=== PATIENT | male | born 1955 | race Caucasian/White ===

== ENCOUNTER → 2016-11-09 | Outpatient (CLI) | payer OTHER ==
[~2016-11-09] MED LIST: AUGMENTIN PO; BENADRYL PO; CELEXA PO; COMBIVENT INH14.7 GM INH; COREG12.5 MG PO; CREON DR 24,001 EACH PO; CRESTOR PO; DICLOFENAC PO; EFFEXOR XR PO; ENTRESTO 24 MG1 EACH PO; FAMOTIDINE20 M1 PO; FERROUS GLUCON324 MG PO; FLEXERIL10 MG PO; HUMALOG MIX 75/10 ML SUBQ; HUMULIN 70/30 V10 ML SUBQ; IBUPROFEN PO; LEVAQUIN750 MG PO; LISINOPRIL PO; LISINOPRIL5 MG PO; METFORMIN HCL500 M1 PO; METOPROLOL TAR25 MG PO; MOBIC15 MG PO; MS CONTIN60 MG PO; NEURONTIN300 MG PO; OMEPRAZOLE40 M1 PO; PERCOCET 10/3251 TAB PO; PHENERGAN25 M1 PO; PHENERGAN25 MG PO; PRAVASTATIN SOD40 MG PO; PREDNISONE PO; PRILOSEC PO; SEROQUEL PO; ZANAFLEX PO; ZITHROMAX PO; ZOFRANODT PO
--- NOTE | ~2016-11-09 | CT57 ---
[facility] A Service of [facility] & [facility] RADIOLOGY TEXT RESULTS PATIENT: JULIANNA HARVEY [facility] UN[facility] #: [id number] AGE: [address]: Kaitlynn Rosenbaum SEX: M ORDER DR: [id number] [place] [id number] [facility]. [place], [place] [address] [id number] O MR#: [id number] [facility] #: [id number] NAME: JULIANNA HARVEY : 1955 SEX: M STUDY DATE/TIME: 11/09/2016 14:21 UNIT: [facility] ROOM: STUDY DESCRIPTION: CT Chest Wo Cont Attending Physician: Kaitlynn Rosenbaum A.P.R.N. Ordering Physician: Physician Non-Staff Primary Care Physician: Kaitlynn Rosenbaum A.P.R.N. MEDICAL IMAGING REPORT This report is preliminary unless electronic signature is present EXAM CT chest without contrast 11/09/2016 at 14:34 hours. HISTORY 61-year-old man with no history of prior malignancy, for followup of lung nodule. Patient has a history of diabetes and hypertension. COMPARISON Chest CT 04/18/2016. TECHNIQUE Helical noncontrasted images were obtained from the thoracic inlet through the adrenal glands. Sagittal and coronal reconstructions were performed. Total exam DLP 213 mGy-cm. This CT exam was performed with one or more of the following radiation dose reduction techniques: automatic exposure control, adjustment of mA and/or kV according to patient size, and iterative reconstruction. FINDINGS Images through the thoracic inlet demonstrate no thyroid mass or supraclavicular adenopathy. Images through the chest demonstrate no pathologic mediastinal, hilar or axillary adenopathy. The aorta is normal in caliber. There are faint coronary calcifications. There is no pericardial or pleural fluid. The esophagus is normal. The lung window images demonstrate a nodule in the right middle lobe which appears to be associated with the pleura of the minor fissure. This is unchanged, measuring 6 x 5 mm. It has a density measurement of up to 193 Hounsfield units today, suggesting that this is likely partially calcified and benign. No new or developing nodules are seen. STS. [facility] A Service of [facility] RADIOLOGY TEXT RESULTS PATIENT: JULIANNA HARVEY LOCATION: [facility] : 51 UNIT #: [id number] AGE: [address]: Kaitlynn Rosenbaum SEX: M ORDER DR: Limited views through the upper abdomen are degraded by artifact from spinal fusion hardware. No acute findings are seen. IMPRESSION There is a stable 6 x 5 mm nodule right middle lobe which appears to be associated with the pleura of the minor fissure. This measures up to 193 Hounsfield units today, suggesting that this is at least partially calcified. It is unchanged from 04/08/2016. Benign etiology is strongly favored. Suggest followup in 12 months for this likely benign nodule. Dictated by... Deanne Toscano M.D. THIS IS AN ELECTRONICALLY VERIFIED REPORT Deanne Toscano M.D. at 11/10/2016 2:30 PM JAKOB/amanda TD: 11/10/2016 14:00 JOB #: [id number] MEDICAL IMAGING REPORT COPY
== END | disposition home or self-care (01) ==
LOC: CCAT 14:10
DX: R91.1 Solitary pulmonary nodule (principal)
CPT/HCPCS: 71250

== ENCOUNTER 2016-12-29 19:50 | Emergency (ER) | payer OTHER ==
--- NOTE | ~2016-12-29 | CR173 ---
[facility]. [facility] A Service of [facility] & [facility] RADIOLOGY TEXT RESULTS PATIENT: JULIANNA HARVEY LOCATION: SED : 51 UNIT #: [id number] AGE: [address]: Boby Meadows SEX: M ORDER DR: [id number] [place] [id number] E MR#: [id number] Acc #: [id number] NAME: JULIANNA HARVEY : 1955 SEX: M STUDY DATE/TIME: 12/29/2016 19:41 UNIT: SED ROOM: STUDY DESCRIPTION: CR Knee 3 Views Rt Attending Physician: Boby Meadows P.A.-C. Ordering Physician: Boby Meadows P.A.-C. Primary Care Physician: Kaitlynn Rosenbaum A.P.R.N. MEDICAL IMAGING REPORT This report is preliminary unless electronic signature is present. EXAM Right knee, 3 views. HISTORY Knee pain after fall 2 days ago. FINDINGS Moderate degenerative disc space narrowing in the medial compartment of the right knee. No fracture or effusion. IMPRESSION Moderate degenerative joint space narrowing in the medial compartment. No acute findings. Dictated by... Dru Cabrera M.D. THIS IS AN ELECTRONICALLY VERIFIED REPORT Dru Cabrera M.D. at 12/30/2016 9:10 PM RO/mehnaz TD: 12/29/2016 22:55 JOB #: [id number] MEDICAL IMAGING REPORT Page 1 of 1
--- NOTE | ~2016-12-29 | CT71 ---
[facility] A Service of [facility] RADIOLOGY TEXT RESULTS PATIENT: JULIANNA HARVEY LOCATION: SED : 51 UNIT #: [id number] AGE: [address]: Boby Meadows SEX: M ORDER DR: [id number] [place] [id number] E MR#: [id number] Acc #: [id number] NAME: JULIANNA HARVEY : 1955 SEX: M STUDY DATE/TIME: 12/29/2016 19:32 UNIT: SED ROOM: STUDY DESCRIPTION: CT Head Wo Contrast Attending Physician: Boby Meadows P.A.-C. Ordering Physician: Boby Meadows P.A.-C. Primary Care Physician: Kaitlynn Rosenbaum A.P.R.N. MEDICAL IMAGING REPORT This report is preliminary unless electronic signature is present. EXAM CT brain without contrast, 12/29/16 HISTORY Headache after fall and injury to right side of head 2 days ago TECHNIQUE Axial noncontrast images were obtained from the skull base to the vertex. This CT exam was performed with one or more of the following radiation dose reduction techniques: automatic exposure control, adjustment of mA and/or kV according to patient size, and iterative reconstruction. FINDINGS Ventricular size and configuration are normal. There is no evidence of acute infarct or hemorrhage. There are no extraaxial fluid collections. No mass lesion or mass effect is seen. There are no skull fractures. IMPRESSION Normal noncontrast head CT. Dictated by... Dru Cabrera M.D. THIS IS AN ELECTRONICALLY VERIFIED REPORT Dru Cabrera M.D. at 12/30/2016 9:10 PM RO/molly TD: 12/29/2016 22:48 [facility] A Service of [facility] RADIOLOGY TEXT RESULTS PATIENT: JULIANNA HARVEY LOCATION: SED : 53 UNIT #: [id number] AGE: [address]: Boby Meadows SEX: M ORDER DR: DANGELO #: [id number] MEDICAL IMAGING REPORT Page 1 of 1
--- NOTE | ~2016-12-29 | CR181 ---
[facility]. [facility] A Service of [facility] & [facility] RADIOLOGY TEXT RESULTS PATIENT: JULIANNA HARVEY LOCATION: SED : 51 UNIT #: [id number] AGE: [address]: Boby Meadows SEX: M ORDER DR: [id number] [place] [id number] E MR#: [id number] Acc #: [id number] NAME: JULIANNA HARVEY : 1955 SEX: M STUDY DATE/TIME: 12/29/2016 19:41 UNIT: SED ROOM: STUDY DESCRIPTION: CR Lumbar Spine 2 or 3 Views Attending Physician: Boby Meadows P.A.-C. Ordering Physician: Boby Meadows P.A.-C. Primary Care Physician: Kaitlynn Rosenbaum A.P.R.N. MEDICAL IMAGING REPORT This report is preliminary unless electronic signature is present. EXAM Lumbar spine 3 views HISTORY Back pain after fall 2 days ago FINDINGS Three views of the lumbar spine demonstrate mild left lower lumbar curve. Fusion hardware extends from T12 to L5, with intervertebral implant at L5-S1 and right sided pedicle screw to S1. Posterior bone graft. No acute fracture or subluxation. Mild chronic anterior wedging of T12 is unchanged compared to 02/12/16. Moderate disk space narrowing at L2-3. IMPRESSION No acute findings. Multilevel fusion hardware extending from T12 to L5-S1. Dictated by... Dru Cabrera M.D. THIS IS AN ELECTRONICALLY VERIFIED REPORT Dru Cabrera M.D. at 12/30/2016 9:10 PM RO/molly TD: 12/29/2016 22:53 JOB #: [id number] MEDICAL IMAGING REPORT Page 1 of 1
== END 2016-12-29 20:37 | disposition home or self-care (01) ==
LOC: SED 19:50
DX: S09.90XA Unspecified injury of head, initial encounter (principal); I10 Essential (primary) hypertension; E11.9 Type 2 diabetes mellitus without complications; Z79.4 Long term (current) use of insulin
CPT/HCPCS: 70450; 72100; 73562; 99284

== ENCOUNTER → 2017-03-24 | Outpatient (CLI) | payer OTHER | END | disposition home or self-care (01) | LOC: CECH 12:19 | DX: I42.8 Other cardiomyopathies (principal); I51.7 Cardiomegaly | CPT/HCPCS: 93306 ==

== ENCOUNTER → 2017-05-21 | Outpatient (CLI) | payer OTHER ==
--- NOTE | ~2017-05-21 | CR182 ---
[facility] A Service of [facility] & [facility] RADIOLOGY TEXT RESULTS PATIENT: JULIANNA HARVEY LOCATION: [facility] : 51 UNIT #: [id number] AGE: [address]: Lizet England APRN SEX: M ORDER DR: [id number] [address] [address] [id number] O MR#: [id number] Acc #: [id number] NAME: JULIANNA HARVEY : 1955 SEX: M STUDY DATE/TIME: 05/21/2017 15:08 UNIT: [facility] ROOM: STUDY DESCRIPTION: CR Lumbar Spine Bending Only 2 Attending Physician: Lizet England Aprn Referring Physician: Lizet England Aprn Ordering Physician: Lizet England Aprn Primary Care Physician: Kaitlynn Rosenbaum A.P.R.N. MEDICAL IMAGING REPORT This report is preliminary unless electronic signature is present. EXAM Lumbar spine, bending views, dated 05/21/2017. COMPARISON Plain films of the lumbar spine dated 12/29/2016. HISTORY Back pain for many years. TECHNIQUE Flexion/extension, lateral views of the lumbar spine and frontal neutral view of the lumbar spine were obtained. FINDINGS T12-L2 to L4 vertebrae demonstrate bipedicular screws with stabilization rods. There is a right S1 pedicle screw without attachment to any steven. Intervertebral disc prostheses are noted at T12-L1, L2-3, L4-5 and L5-S1 without bony fusion yet. There is no significant change in alignment between the flexion/extension views of the lumbar spine. There is mild retrolisthesis of L2 with respect to L3 which is stable in both views. It is likely related to a prominent posterior osteophyte along the L2 inferior endplate. Chronic anterior wedge compression deformity of T12 is seen with 30-to-40% maximum vertebral body height loss. No acute displaced fracture is seen. Pre and paravertebral soft tissues do not demonstrate any obvious abnormality. IMPRESSION 1. Postoperative changes are noted with evidence of hardware infusion as described above. It is involving most of the lumbar spine. 2. There is a right S1 pedicle screw noted isolately. It is not connected to any stabilization steven. 3. Anterior wedge chronic compression deformity of T12 vertebral body is STS. [facility] A Service of [facility] & [facility] RADIOLOGY TEXT RESULTS PATIENT: JULIANNA HARVEY LOCATION: [facility] : 51 UNIT #: [id number] AGE: [address]: Lizet England APRN SEX: M ORDER DR: noted with a height loss of 30-to-40%. 4. There is a prominent posterior/inferior L2 endplate osteophyte which appears to give an appearance of mild retrolisthesis of L2 when compared to L3. This appearance is stable between flexion and extension without any change. 5. Intervertebral disc prostheses are noted at T12-L1, L2-3, L4-5 and L5-S1 without any complete bony fusion yet. Dictated by... Ryland Tee M.D. THIS IS AN ELECTRONICALLY VERIFIED REPORT Ryland Tee M.D. at 05/25/2017 9:57 PM CPR/jkale TD: 05/22/2017 01:40 JOB #: [id number] MEDICAL IMAGING REPORT Page 1 of 1
== END | disposition home or self-care (01) ==
LOC: SRAD 15:01
DX: M51.36 Other intervertebral disc degeneration, lumbar region (principal); M43.9 Deforming dorsopathy, unspecified; M25.78 Osteophyte, vertebrae; M43.16 Spondylolisthesis, lumbar region; Z98.890 Other specified postprocedural states
CPT/HCPCS: 72120